=== PATIENT | male | born 1940 | race Caucasian/White ===

== ENCOUNTER → 2016-09-07 | Outpatient (CLI) | payer MEDICARE ==
[~2016-09-07] MED LIST: ALEVE220 MG PO; CHILDREN'S ASPI81 M1 PO; DUO-KAPS1 CAP PO; FOLIC ACID1 MG PO; LISINOPRIL10 MG PO; METHOTREXATE2.5 M1 PO; PREDNISONE20 M1 PO; PRILOSEC 20MG20 MG PO; VENLAFAXINE HCL75 MG PO; VITAMIN B121000 MC2 PO
== END ==
LOC: LAB 07:48
DX: Z51.81 Encounter for therapeutic drug level monitoring (principal); Z79.899 Other long term (current) drug therapy

== ENCOUNTER → 2017-01-30 | Outpatient (CLI) | payer MEDICARE ==
[2014-08-07 20:05] VITALS: BP 151/70
== END ==
LOC: LAB 07:13
DX: Z51.81 Encounter for therapeutic drug level monitoring (principal); Z79.899 Other long term (current) drug therapy

== ENCOUNTER → 2017-05-30 | Outpatient (CLI) | payer MEDICARE ==
[2014-08-07 20:05] VITALS: BP 151/70
== END ==
LOC: LAB 07:10
DX: Z79.899 Other long term (current) drug therapy (principal); Z12.5 Encounter for screening for malignant neoplasm of prostate; I10 Essential (primary) hypertension; R73.09 Other abnormal glucose; M06.9 Rheumatoid arthritis, unspecified; E78.2 Mixed hyperlipidemia; D64.9 Anemia, unspecified

== ENCOUNTER → 2017-05-31 | Outpatient (CLI) | payer MEDICARE ==
[2014-08-07 20:05] VITALS: BP 151/70
== END ==
LOC: LAB 15:28
DX: I10 Essential (primary) hypertension (principal); R73.09 Other abnormal glucose; M06.9 Rheumatoid arthritis, unspecified; Z12.5 Encounter for screening for malignant neoplasm of prostate; E78.2 Mixed hyperlipidemia; D64.9 Anemia, unspecified

== ENCOUNTER → 2017-06-27 | Outpatient (CLI) | payer MEDICARE ==
[2014-08-07 20:05] VITALS: BP 151/70
[2017-06-27 07:53] LABS: EOS # 0.1 (0.04-0.40); EOS % 3.1 % (0.0-4.0); HEMATOCRIT 42.1 % (42.0-52.0); HEMOGLOBIN 14.1 g/dL (13.5-18.0); LYMPH# 1.3 (1.50-4.00); MEAN CELL VOLUME 92 fl (78-100); MEAN CORPUSCULAR HEMOGLOBIN 31 pg (27-31); MEAN CORPUSCULAR HGB CONC 34 g/dL (33-37); MEAN PLATELET VOLUME 10.1 fl (7.4-10.4); MONO # 0.3 (0.20-0.80); NEU # 2.9 (1.40-6.50); PLATELET COUNT 163 K/mm3 (130-400); RED BLOOD COUNT 4.56 M/mm3 (4.20-5.60); WHITE BLOOD COUNT 4.6 K/mm3 (4.8-10.8)
[2017-06-27 08:02] LABS: ALBUMIN 3.6 g/dL (3.5-5.0)
== END ==
LOC: LAB 07:37
PROVIDERS: Internal Medicine Rheumatology
DX: Z79.899 Other long term (current) drug therapy (principal)

== ENCOUNTER → 2017-09-13 | Outpatient (CLI) | payer MEDICARE ==
[2014-08-07 20:05] VITALS: BP 151/70
[2017-09-13 07:31] LABS: EOS # 0.1 (0.04-0.40); EOS % 2.3 % (0.0-4.0); HEMOGLOBIN 13.3 g/dL (13.5-18.0); LYMPH# 1.3 (1.50-4.00); MEAN CELL VOLUME 93 fl (78-100); MEAN CORPUSCULAR HEMOGLOBIN 30 pg (27-31); MEAN CORPUSCULAR HGB CONC 32 g/dL (33-37); MEAN PLATELET VOLUME 10.5 fl (7.4-10.4); MONO # 0.6 (0.20-0.80); PLATELET COUNT 199 K/mm3 (130-400); RED BLOOD COUNT 4.43 M/mm3 (4.20-5.60); RED CELL DISTRIBUTION WIDTH 14.8 % (11.5-14.5); WHITE BLOOD COUNT 6.1 K/mm3 (4.8-10.8)
[2017-09-13 07:37] LABS: ALBUMIN 4.1 g/dL (3.5-5.0)
== END ==
LOC: LAB 07:11
PROVIDERS: Internal Medicine Rheumatology
DX: Z79.899 Other long term (current) drug therapy (principal)

== ENCOUNTER → 2017-12-13 | Outpatient (CLI) | payer MEDICARE ==
[2014-08-07 20:05] VITALS: BP 151/70
[2017-12-13 07:47] LABS: EOS # 0.1 (0.04-0.40); HEMATOCRIT 41.9 % (42.0-52.0); LYMPH# 1.8 (1.50-4.00); MEAN CELL VOLUME 94 fl (78-100); MEAN CORPUSCULAR HEMOGLOBIN 32 pg (27-31); MEAN CORPUSCULAR HGB CONC 33 g/dL (33-37); MEAN PLATELET VOLUME 10.3 fl (7.4-10.4); MONO # 0.6 (0.20-0.80); PLATELET COUNT 191 K/mm3 (130-400); RED BLOOD COUNT 4.45 M/mm3 (4.20-5.60); WHITE BLOOD COUNT 6.5 K/mm3 (4.8-10.8)
[2017-12-13 07:55] LABS: ALBUMIN 4.2 g/dL (3.5-5.0)
== END ==
LOC: LAB 07:05
PROVIDERS: Internal Medicine Rheumatology
DX: Z79.899 Other long term (current) drug therapy (principal)

== ENCOUNTER → 2017-12-27 | Outpatient (CLI) | payer MEDICARE ==
[2014-08-07 20:05] VITALS: BP 151/70
[2017-12-27 10:45] LABS: EOS # 0.1 (0.04-0.40); EOS % 2.3 % (0.0-4.0); HEMATOCRIT 39.9 % (42.0-52.0); HEMOGLOBIN 13.6 g/dL (13.5-18.0); LYMPH# 1.6 (1.50-4.00); MEAN CELL VOLUME 94 fl (78-100); MEAN CORPUSCULAR HEMOGLOBIN 32 pg (27-31); MEAN CORPUSCULAR HGB CONC 34 g/dL (33-37); MEAN PLATELET VOLUME 10.3 fl (7.4-10.4); MONO # 0.7 (0.20-0.80); NEU # 3.7 (1.40-6.50); PLATELET COUNT 182 K/mm3 (130-400); RED BLOOD COUNT 4.23 M/mm3 (4.20-5.60); RED CELL DISTRIBUTION WIDTH 14.2 % (11.5-14.5); WHITE BLOOD COUNT 6.2 K/mm3 (4.8-10.8)
[2017-12-27 10:57] LABS: BUN/CREATININE RATIO 31.9 (6.0-26.0); CALCIUM 9.5 mg/dL (8.4-10.2); POTASSIUM 4.1 mmol/L (3.6-5.0); TOTAL BILIRUBIN 0.3 mg/dL (0.2-1.3); TOTAL PROTEIN 7.2 g/dL (6.3-8.2)
[2017-12-27 11:50] LABS: URINE APPEARANCE CLEAR; URINE BILIRUBIN NEGATIVE (NEGATIVE); URINE BLOOD NEGATIVE (NEGATIVE); URINE COLOR YELLOW; URINE GLUCOSE 50 mg/dL mg/dL (NEGATIVE); URINE KETONE NEGATIVE (NEGATIVE); URINE LEUKOCYTE ESTERASE NEGATIVE (NEGATIVE); URINE MUCUS PRESENT (NOT PRESENT); URINE NITRATE NEGATIVE (NEGATIVE); URINE PROTEIN(semi-quant) NEGATIVE (NEGATIVE); URINE UROBILINOGEN NORMAL (NORMAL)
[2017-12-27 12:12] LABS: ERYTHROCYTE SEDIMENTATION RATE 7 mm/hr (0-20)
[2017-12-28 02:14] LABS: TESTOSTERONE 261 ng/dL (221-716)
== END ==
LOC: LAB 10:26
PROVIDERS: Internal Medicine
DX: R73.09 Other abnormal glucose (principal); I10 Essential (primary) hypertension; E78.5 Hyperlipidemia, unspecified; M06.9 Rheumatoid arthritis, unspecified; Z12.11 Encounter for screening for malignant neoplasm of colon

== ENCOUNTER → 2018-03-25 | Outpatient (CLI) | payer MEDICARE ==
[2014-08-07 20:05] VITALS: BP 151/70
[2018-03-25 07:35] LABS: EOS # 0.3 (0.04-0.40); EOS % 4.4 % (0.0-4.0); HEMATOCRIT 39.7 % (42.0-52.0); HEMOGLOBIN 13.3 g/dL (13.5-18.0); LYMPH# 1.1 (1.50-4.00); MEAN CELL VOLUME 94 fl (78-100); MEAN CORPUSCULAR HEMOGLOBIN 31 pg (27-31); MEAN CORPUSCULAR HGB CONC 34 g/dL (33-37); MEAN PLATELET VOLUME 9.8 fl (7.4-10.4); MONO # 0.8 (0.20-0.80); NEU # 4.2 (1.40-6.50); PLATELET COUNT 202 K/mm3 (130-400); RED BLOOD COUNT 4.24 M/mm3 (4.20-5.60); RED CELL DISTRIBUTION WIDTH 14.7 % (11.5-14.5); WHITE BLOOD COUNT 6.4 K/mm3 (4.8-10.8)
== END ==
LOC: LAB 07:13
PROVIDERS: Emergency Medicine
DX: Z51.81 Encounter for therapeutic drug level monitoring (principal); Z79.899 Other long term (current) drug therapy

== ENCOUNTER → 2018-06-17 | Outpatient (CLI) | payer MEDICARE ==
[2014-08-07 20:05] VITALS: BP 151/70
[2018-06-17 09:42] LABS: EOS # 0.1 (0.04-0.40); HEMATOCRIT 44.4 % (42.0-52.0); HEMOGLOBIN 14.8 g/dL (13.5-18.0); MEAN CELL VOLUME 93 fl (78-100); MEAN CORPUSCULAR HEMOGLOBIN 31 pg (27-31); MEAN CORPUSCULAR HGB CONC 33 g/dL (33-37); MEAN PLATELET VOLUME 10.1 fl (7.4-10.4); MONO # 0.4 (0.20-0.80); NEU # 3.8 (1.40-6.50); PLATELET COUNT 170 K/mm3 (130-400); RED BLOOD COUNT 4.76 M/mm3 (4.20-5.60); RED CELL DISTRIBUTION WIDTH 14.2 % (11.5-14.5); WHITE BLOOD COUNT 5.4 K/mm3 (4.8-10.8)
[2018-06-17 10:27] LABS: ALBUMIN 3.9 g/dL (3.5-5.0)
== END ==
LOC: LAB 09:32
PROVIDERS: Internal Medicine Rheumatology
DX: Z51.81 Encounter for therapeutic drug level monitoring (principal); Z79.899 Other long term (current) drug therapy

== ENCOUNTER → 2018-11-10 | Outpatient (CLI) | payer MEDICARE ==
[2014-08-07 20:05] VITALS: BP 151/70
[2018-11-10 15:15] LABS: EOS # 0.1 (0.04-0.40); EOS % 1.3 % (0.0-4.0); HEMATOCRIT 41.9 % (42.0-52.0); HEMOGLOBIN 14.2 g/dL (13.5-18.0); LYMPH# 1.1 (1.50-4.00); MEAN CELL VOLUME 93 fl (78-100); MEAN CORPUSCULAR HEMOGLOBIN 31 pg (27-31); MEAN CORPUSCULAR HGB CONC 34 g/dL (33-37); MEAN PLATELET VOLUME 9.8 fl (7.4-10.4); MONO # 0.5 (0.20-0.80); NEU # 3.5 (1.40-6.50); PLATELET COUNT 186 K/mm3 (130-400); RED BLOOD COUNT 4.53 M/mm3 (4.20-5.60); RED CELL DISTRIBUTION WIDTH 14.2 % (11.5-14.5); WHITE BLOOD COUNT 5.2 K/mm3 (4.8-10.8)
[2018-11-13 10:05] LABS: ALBUMIN 3.6 g/dL (3.5-5.0)
== END ==
LOC: LAB 14:55
PROVIDERS: Internal Medicine Rheumatology
DX: Z79.899 Other long term (current) drug therapy (principal)

== ENCOUNTER → 2019-01-23 | Outpatient (CLI) | payer MEDICARE ==
[2014-08-07 20:05] VITALS: BP 151/70
[2019-01-23 10:28] LABS: EOS # 0.2 (0.04-0.40); EOS % 2.9 % (0.0-4.0); HEMATOCRIT 42.6 % (42.0-52.0); LYMPH# 1.1 (1.50-4.00); MEAN CELL VOLUME 94 fl (78-100); MEAN CORPUSCULAR HEMOGLOBIN 31 pg (27-31); MEAN CORPUSCULAR HGB CONC 33 g/dL (33-37); MEAN PLATELET VOLUME 9.7 fl (7.4-10.4); MONO # 0.4 (0.20-0.80); NEU # 3.5 (1.40-6.50); PLATELET COUNT 173 K/mm3 (130-400); RED BLOOD COUNT 4.55 M/mm3 (4.20-5.60); RED CELL DISTRIBUTION WIDTH 14.7 % (11.5-14.5); WHITE BLOOD COUNT 5.2 K/mm3 (4.8-10.8)
[2019-01-23 10:45] LABS: ALBUMIN 3.8 g/dL (3.4-4.8)
== END ==
LOC: LAB 10:10
PROVIDERS: Internal Medicine Rheumatology
DX: Z79.899 Other long term (current) drug therapy (principal)

== ENCOUNTER → 2019-04-22 | Outpatient (CLI) | payer MEDICARE ==
[2014-08-07 20:05] VITALS: BP 151/70
== END ==
LOC: RAD 07:35
DX: M48.07 Spinal stenosis, lumbosacral region (principal); M48.061 Spinal stenosis, lumbar region without neurogenic claudication; M47.816 Spondylosis without myelopathy or radiculopathy, lumbar region; M71.38 Other bursal cyst, other site